=== PATIENT | female | born 1950 | race Caucasian/White ===

== ENCOUNTER → 2018-05-28 | Day surgery (SDC) | payer MEDICARE ==
[~2018-05-28] MED LIST: BUPIVACAINE 0.5%/EPI 30 ML SDV INJ ONE; CEFAZOLIN SOD 2 GM/D5W 50ML 50 ML IV ONE; CELEBREX100 MG PO; DEXAMETHASONE SOD PHOS INJ 4 MG/ML VIAL ONE; FENTANYL CITRATE/PF 100MCG/2 ML INJ ONE; KETOROLAC TROMETHAMINE 30 MG/ML VIAL ONE; LIDOCAINE HCL 2% LOCAL INJ 5 ML SDV VIAL INJ ONE; MIDAZOLAM HCL 2 MG/2 ML VIAL ONE; ONDANSETRON HCL INJ 2MG/ML 2ML 2 MG/ML VIAL ONE; PROPOFOL IV EMULSION 10 MG/ML 20 ML VIAL ONE; SEVOFLURANE INHAL SOLN 250 ML PEN BTL ONE; TYLENOL WITH C1 EAC1 PO
[2018-05-28 08:51] LABS: BASOPHILS % 0.7 % (0.0-1.0); EOSINOPHILS # (AUTO) 0.2 (0.0-0.4); EOSINOPHILS % 2.7 % (0.0-6.0); HEMATOCRIT 38.6 % (34.2-44.1); HEMOGLOBIN 12.7 g/dL (12.0-16.0); LYMPHOCYTES # (AUTO) 1.6 (1.0-3.2); LYMPHOCYTES % 26.2 % (18.0-39.1); MEAN CORPUSCULAR HEMOGLOBIN 29.7 pg (28-32); MEAN CORPUSCULAR HGB CONC 32.9 g/dL (31-35); MEAN CORPUSCULAR VOLUME 90.2 fL (81-99); MONOCYTES # (AUTO) 0.5 (0.2-0.8); MONOCYTES % 8.2 % (4.4-11.3); NEUTROPHILS # (AUTO) 3.7 (2.1-6.9); PLATELET COUNT 296 x10e3/uL (140-360); RED BLOOD COUNT 4.28 x10e6/uL (3.6-5.1); RED CELL DISTRIBUTION WIDTH 13.2 % (11.7-14.4)
--- NOTE | 2018-05-28 10:23 | Diagnostic Imaging Report ---
EXAM: CHEST 2 VIEWS, PA and lateral DATE: 05/28/2018 Time stamp on exam: 9:42 AM INDICATION: Preoperative COMPARISON: None FINDINGS: LINES/TUBES: None LUNGS: Right basilar density suggests the possibility of a nodule versus asymmetric costochondral opacity. Comparison with old studies is recommended if available. If old studies are not available CT scan of the chest would be of benefit. PLEURA: No effusions or pneumothorax. HEART AND MEDIASTINUM: Normal size and contour. BONES AND SOFT TISSUES: No acute findings. IMPRESSION: 1. No acute thoracic abnormality. 2. Right basilar opacity represent a nodule. Signed by: Dr. Jaleel Mitchell DO on 05/28/2018 10:19 AM
[2018-05-28 12:45] VITALS: BP 141/81
--- NOTE | 2018-06-01 16:23 | Operative Report ---
DATE OF PROCEDURE: 05/28/2018 SURGEON: Alexis Saldana MD PREOPERATIVE DIAGNOSES: 1. Medial meniscus tear, left knee. 2. Degenerative joint disease of the knee. POSTOPERATIVE DIAGNOSES: 1. Left knee medial meniscus tear. 2. Left knee lateral meniscus tear. 3. Left knee, degenerative joint disease of the knee. OPERATION/PROCEDURE PERFORMED: The patient underwent a left knee examination under anesthesia, left knee arthroscopy, left knee partial medial meniscectomy, left knee partial meniscectomy, left knee chondroplasty of the patella, trochlea, the medial femoral condyle, the medial tibial plateau, femoral condyle, and lateral tibial plateau. PLUMBER MAINTENANCE: Malou Cosme. ANESTHESIA: General endotracheal intubation anesthesia. IV FLUIDS: Per the Anesthesia record. BRIEF DISCUSSION OF THE PATIENT'S OPERATIVE PROCEDURE: Ms. Champion was taken to the operating room, placed in the supine position on the operating room table. Following induction of general anesthesia as well as endotracheal intubation, the patient's left lower extremity was examined under anesthesia. She was found to have a mild effusion at the knee joint, but otherwise ligamentously stable knee. The patient's lower extremity was prepped and draped in standard surgical fashion. A 2-port technique was used to provide the patient arthroscopic evaluation of the knee joint. Examination of suprapatellar pouch, medial and lateral gutters found no evidence of loose bodies. There was, however, evidence of chondromalacia of the patella and trochlear surfaces. The scope was then advanced into the medial compartment. Examination of the medial compartment demonstrated a torn medial meniscus. There was also chondromalacia of the articulating surfaces. A combination of biting forceps and a motorized shaver were used to resect the torn portion of the meniscus. Chondroplasties of the medial femoral condyle and medial tibial plateau were also performed at this time. The scope was then advanced into intercondylar notch and the anterior cruciate ligament was identified and found to be intact. The scope was then advanced into the lateral compartment and there was chondromalacia of the articulating surfaces. There was also a torn lateral meniscus. A combination of biting forceps and a motorized shaver were used to resect the torn portion of the lateral meniscus. Chondroplasties of the lateral femoral condyle and lateral tibial plateau were performed at this time. The scope was then advanced into the suprapatellar pouch and chondroplasties of the patella and trochlea were performed. The knee was insufflated with sterile normal saline. Each of the portal sites were closed using 4-0 nylon sutures. The portal sites as well as the knee itself were injected with 0.5% Marcaine with epinephrine. Sterile dressings were applied. The patient was then awakened and taken to the Postanesthesia Care Unit in stable condition. MD MIAH Nuñez/RAYA /[id number]
== END | disposition home or self-care (01) ==
LOC: OR 07:59
PROVIDERS: ATTEND Specialist
DX: S83.222A Peripheral tear of medial meniscus, current injury, left knee, initial encounter (principal); S83.282A Other tear of lateral meniscus, current injury, left knee, initial encounter; M22.42 Chondromalacia patellae, left knee; S83.221A Peripheral tear of medial meniscus, current injury, right knee, initial encounter; M17.0 Bilateral primary osteoarthritis of knee; X58.XXXA Exposure to other specified factors, initial encounter; Z68.32 Body mass index [BMI] 32.0-32.9, adult
CPT/HCPCS: 29880; 36415; 71046; 85025; 93005; J0690; J1100; J1885; J2001; J2250; J2405; J2704

== ENCOUNTER → 2018-12-24 | Day surgery (SDC) | payer MEDICARE ==
[2018-12-23 09:39] LABS: BASOPHILS % 0.6 % (0.0-1.0); EOSINOPHILS # (AUTO) 0.1 (0.0-0.4); EOSINOPHILS % 1.8 % (0.0-6.0); HEMATOCRIT 39.8 % (34.2-44.1); HEMOGLOBIN 12.9 g/dL (12.0-16.0); LYMPHOCYTES # (AUTO) 1.6 (1.0-3.2); LYMPHOCYTES % 21.4 % (18.0-39.1); MEAN CORPUSCULAR HEMOGLOBIN 29.3 pg (28-32); MEAN CORPUSCULAR HGB CONC 32.4 g/dL (31-35); MEAN CORPUSCULAR VOLUME 90.2 fL (81-99); MONOCYTES # (AUTO) 0.5 (0.2-0.8); MONOCYTES % 6.4 % (4.4-11.3); NEUTROPHILS % 69.2 % (38.7-80.0); PLATELET COUNT 336 x10e3/uL (140-360); RED BLOOD COUNT 4.41 x10e6/uL (3.6-5.1); RED CELL DISTRIBUTION WIDTH 12.5 % (11.7-14.4)
--- NOTE | 2018-12-23 11:04 | Diagnostic Imaging Report ---
Chest, 2 views, 12/23/2018. History: Preop, right knee surgery. Comparison: 05/20/2018. Findings: The cardiomediastinal silhouette and pulmonary vasculature are within normal limits. The medial right basilar opacity described on the prior x-ray is unchanged. There is no focal consolidation or pleural effusion. Degenerative changes are present throughout the thoracic spine. There are no acute osseous or soft tissue abnormalities. Impression: No significant change in medial right basilar opacity, which may represent a prominent epicardial fat pad. This may be confirmed with CT. No other pulmonary findings. Signed by: Patrice Garrido on 12/23/2018 11:01 AM
[~2018-12-24] MED LIST changes: +ACETAMINOPHEN 1000 MG/100 ML IV ONE; +ACETAMINOPHEN/CODEINE 300MG - 30MG TAB ONE; +CEFAZOLIN SOD 1 GM/NS 50ML 100 ML IV ONE; -CEFAZOLIN SOD 2 GM/D5W 50ML 50 ML IV ONE; +MORPHINE SULFATE INJ 4 MG/ML INJ 1ML ONE
--- OUTSIDE RECORDS SUMMARY | 2018-12-24 05:30 | XMS REPORT ---
Author Author [facility] Address Unknown Phone Unavailable Care Team Providers Care Property Clerk Name Role Phone MELODIE WATT Unavailable Unavailable Problems This patient has no known problems. Allergies, Adverse Reactions, Alerts This patient has no known allergies or adverse reactions. Medications This patient has no known medications. Results Test Description Test Time Test Comments Text Results Atomic Results Result Comments CHEST 2 VIEWS 2018-12-23 10:50:00 [facility] [address] [address] Patient Name: JULY WEBER MR #: [id number] : 1950 Age/Sex: 68/F Req #: [id number] Adm Physician: Ordered by: MELODIE WATT MD Report #: [id number] Location: OR Room/Bed: Procedure: [id number] DX/CHEST 2 VIEWS Exam Date: 12/23/18 Exam Time: 0941 REPORT STATUS: Signed Chest, 2 views, 12/23/2018. History: Preop, right knee surgery. Comparison: 05/20/2018. Findings: The cardiomediastinal silhouette and pulmonary vasculature are within normal limits. The medial right basilar opacity described on the prior x-ray is unchanged. There is no focal consolidation or pleural effusion. Degenerative changes are present throughout the thoracic spine. There are no acute osseous or soft tissue abnormalities. Impression: No significant change in medial right basilar opacity, which may represent a prominent epicardial fat pad. This may be confirmed with CT. No other pulmonary findings. Signed by: Stefany Garrido on 12/23/2018 11:01 AM Dictated By: STEFANY GARRIDO MD 00 Transcribed By: BELKIS on 12/23/181100 COPY TO: MELODIE WATT MD CHEST 2 VIEWS 2018-05-28 10:16:00 [address] [place] [address] Patient Name: JULY WEBER MR #: [id number] : 1950 Age/Sex: 67/F Req #: [id number] Adm Physician: Ordered by: MELODIE WATT MD Report #: [id number] Location: OR Room/Bed: Procedure: [id number] DX/CHEST 2 VIEWS Exam Date: Exam Time: REPORT STATUS: Signed EXAM: CHEST 2 VIEWS, PA and lateral DATE: 05/28/2018 Time stamp on exam: 9:42 AM INDICATION: Preoperative COMPARISON: None FINDINGS: LINES/TUBES: None LUNGS: Right basilar density suggests the possibility of a nodule versus asymmetric costochondral opacity. Comparison with old studies is recommended if available. If old studies are not available CT scan of the chest would be of benefit. PLEURA: No effusions or pneumothorax. HEART AND MEDIASTINUM: Normal size and contour. BONES AND SOFT TISSUES: No acute findings. IMPRESSION: 1. No acute thoracic abnormality. 2. Right basilar opacity represent a nodule. Signed by: Dr. Eleanor Mitchell DO on 05/28/2018 10:19 AM Dictated By: ELEANOR MITCHELL DO 1019 Transcribed By: BELKIS on 05/28/18 1019 COPY TO: MELODIE WATT MD
[2018-12-24 09:30] VITALS: BP 130/80
--- NOTE | 2018-12-30 16:01 | Operative Report ---
DATE OF PROCEDURE: 12/24/2018 SURGEON: Alexis Saldana MD PREOPERATIVE DIAGNOSES: Right knee medial meniscus tear, right knee degenerative joint disease of the knee. POSTOPERATIVE DIAGNOSES: Right knee medial meniscus tear, right knee degenerative joint disease of the knee. OPERATION AND PROCEDURES PERFORMED: The patient underwent a right knee examination under anesthesia, right knee arthroscopy, right knee partial medial meniscectomy, right knee chondroplasty of the patella, the trochlea, the medial femoral condyle, medial tibial plateau, the lateral femoral condyle and lateral tibial plateau. PILOT SAFETY INSPECTOR: There was no assistant statistician. ANESTHESIA: General endotracheal intubation anesthesia. IV FLUIDS: Per anesthesia record. BRIEF DESCRIPTION OF THE PATIENT'S OPERATIVE PROCEDURE: Ms. Champion was taken to the operating room, placed in supine position on the operating table. Following induction of general anesthesia as well as endotracheal intubation, the patient's right lower extremity was examined under anesthesia. She was found to have a mild effusion within the knee joint, but otherwise ligamentously stable knee. The patient's lower extremity was prepped and draped in standard surgical fashion. A two-port technique was used to provide this patient arthroscopic evaluation of the knee joint. Examination of the suprapatellar pouch and medial lateral gutters found no evidence of loose bodies. There was however evidence of chondromalacia of the patella and trochlear surfaces. The scope was advanced to the medial compartment. Examination of the medial compartment demonstrated chondromalacia of the articulating surfaces. There was also a torn medial meniscus. A combination of biting forceps and motorized shaver were used to resect the torn portion of meniscus. Chondroplasties of the medial femoral condyle and medial tibial plateau were performed at this time. Scope was then advanced to the intercondylar notch and the anterior cruciate ligament was identified and found to be intact. Scope was advanced to the lateral compartment. Examination of lateral compartment demonstrated chondromalacia of the lateral articular surfaces. A shaver was used to provide a chondroplasty of the lateral tibial plateau and lateral femoral condyle. The scope was then placed in suprapatellar pouch and chondroplasties of the patellar and trochlear performed. The knee was deflated with sterile normal saline. Each of the portal sites were closed using 4-0 nylon suture. The portal sites as well as knee itself were injected with 0.5% Marcaine with epinephrine. Sterile dressings were applied. The patient was then awakened and taken to postanesthesia care unit in stable condition. MD MIAH Nuñez/RAYA /[id number]
== END | disposition home or self-care (01) ==
LOC: OR 05:24
PROVIDERS: ATTEND Specialist
DX: S83.221A Peripheral tear of medial meniscus, current injury, right knee, initial encounter (principal); M17.11 Unilateral primary osteoarthritis, right knee; Z90.49 Acquired absence of other specified parts of digestive tract; Z01.810 Encounter for preprocedural cardiovascular examination; Z01.812 Encounter for preprocedural laboratory examination; Z01.811 Encounter for preprocedural respiratory examination
CPT/HCPCS: 29881; 36415; 71046; 85025; 93005; J0131; J0690; J1100; J1885; J2001; J2250; J2270; J2405; J2704; J3010